=== PATIENT | female | born 1975 | race Caucasian/White ===

== ENCOUNTER 2021-09-01 12:12 | Emergency (ER) | payer MEDICAID ==
[~2021-09-01] VITALS: Ht 162.6 cm; Wt 54.4 kg
--- NOTE | 2021-09-01 12:25 | NUR ---
PT TO ER BED 04 C/O ABDOMINAL PAIN W/ NAUSEA, VOMITING AND DIARRHEA X 1 WEEK. STATES HISTORY OF PANCREATIC CA. STATES TAKING DILAUDID FOR PAPIN CONTROL. STABLE VITALS SAS ARCHITECT. AWAITING MD [place].
--- NOTE | 2021-09-01 12:52 | NUR ---
DR WYMAN AT BEDSIDE FOR EVAL.
[2021-09-01] MEDS ORDERED: ONDANSETRON HCL/PF 4 MG/2 ML VIAL ONE ×2 (12:58→16:31)
[2021-09-01] MEDS ORDERED: ONDANSETRON HCL/PF 4 MG/2 ML VIAL IVP ONE (13:00)
--- NOTE | 2021-09-01 13:18 | NUR ---
PATIENT HARD STICK REQUESTING FOR MIDLINE.
[2021-09-01] MEDS ORDERED: MORPHINE SULFATE INJ 2 MG/ML DISP.SYRIN IV ONE (13:30)
[2021-09-01] MEDS ORDERED: MORPHINE SULFATE INJ 2 MG/ML DISP.SYRIN ONE (13:56)
--- NOTE | 2021-09-01 14:11 | NUR ---
PT TO RADIOLOGY FOR ABDOMINAL CT SCAN VIA [facility].
[2021-09-01] MEDS ORDERED: LEVETIRACETAM (500MG) 1,500 MG in IV NS 0.9% 100 ML IV SCH (14:30)
[2021-09-01] MEDS ORDERED: ONDANSETRON HCL/PF 4 MG/2 ML VIAL IV ONE (14:30)
[2021-09-01] MEDS ORDERED: HYDROMORPHONE INJ 2 MG/ML DISP.SYRIN IV ONE (14:30)
[2021-09-01 14:44] LABS: BILIRUBIN,URINE NEGATIVE (NEGATIVE); COLOR,URINE YELLOW (YELLOW); LEUKOCYTE ESTERASE ,URINE NEGATIVE (NEGATIVE); NITRITE, URINE NEGATIVE (NEGATIVE); PROTEIN,URINE NEGATIVE (NEGATIVE); UGLUCOSE NEGATIVE (NEGATIVE); UROBILINOGEN,URINE 0.2 EU/dL (0.2)
[2021-09-01 15:48] LABS: BACTERIA,URINE None seen /HPF (None Seen); RBC,URINE 0-2 /HPF (0-2); WBC,URINE 0-2 /HPF (0-3)
[2021-09-01 15:49] LABS: CALCIUM OXALATE CRYSTALS,UR Moderate /HPF (None Seen); MUCUS,URINE Few /LPF (None Seen)
--- NOTE | 2021-09-01 16:17 | NUR ---
GABI RESENDEZ AT BEDSIDE FOR MIDLINE PLACEMENT.
--- NOTE | 2021-09-01 16:26 | NUR ---
BLOOD SPECIMEN COLLECTED SENT TO LAB.
[2021-09-01] MEDS ORDERED: HYDROMORPHONE INJ 2 MG/ML DISP.SYRIN ONE ×2 (16:32→18:08)
[2021-09-01 17:13] LABS: BASOPHILS % (AUTO) 0.4 % (0.0-2.0); HEMATOCRIT 35 % (33-45); HEMOGLOBIN 11.5 g/dL (11.5-14.8); LYMPHOCYTES # (AUTO) 1.9 K/uL (0.8-4.8); LYMPHOCYTES % (AUTO) 34.2 % (20.0-44.0); MEAN CORPUSCULAR HGB CONC 33 g/dl (31.0-36.0); MEAN CORPUSCULAR VOLUME 95 fL (82-100); MONOCYTES # (AUTO) 0.4 K/uL (0.1-1.30); MONOCYTES % (AUTO) 6.8 % (2.0-12.0); NEUTROPHILS # (AUTO) 3.2 K/uL (1.8-8.9); NEUTROPHILS % (AUTO) 57.6 % (43.0-81.0); PLATELET COUNT (AUTO) 238 K/uL (150-450); RED BLOOD CELL COUNT(AUTO) 3.74 MIL/uL (4.0-5.2); WHITE BLOOD COUNT (AUTO) 5.6 K/uL (4.3-11.0)
[2021-09-01 17:42] LABS: ALBUMIN 3.7 g/dL (3.4-5.0); BILIRUBIN,DIRECT 0.1 mg/dL (0.0-0.2); BILIRUBIN,TOTAL 0.4 mg/dL (0.2-1.0); CALCIUM, SERUM 8.3 mg/dL (8.5-10.1); CREATININE 0.5 mg/dL (0.6-1.3); TOTAL PROTEIN, SERUM 7.2 g/dL (6.4-8.2)
[2021-09-01] MEDS ORDERED: POTASSIUM CHLORIDE 20 MEQ TAB.PRT.SR PO ONE ×2 (18:30)
[2021-09-01] MEDS ORDERED: HYDROMORPHONE MDV 2 MG in IV D5W 50 ML IV PRN (18:30)
[2021-09-01] MEDS ORDERED: ONDA4TAB5 SL (18:32)
[2021-09-01] MEDS ORDERED: ACET-907 PO (18:33)
[2021-09-01 19:11] VITALS: BP 128/77
--- NOTE | 2021-09-01 19:11 | NUR ---
Patient discharged to home in stable condition. Written and verbal after care instructions given. Patient verbalizes understanding of instruction.IV removed. Catheter intact and site benign. Pressure and 4x4 applied to site. No bleeding noted.
== END 2021-09-01 19:12 | disposition home or self-care (01) ==
LOC: ER 12:16
DX: R11.2 Nausea with vomiting, unspecified (principal); R10.9 Unspecified abdominal pain; Z86.69 Personal history of other diseases of the nervous system and sense organs; Z87.19 Personal history of other diseases of the digestive system; Z88.0 Allergy status to penicillin; Z88.6 Allergy status to analgesic agent; Z79.891 Long term (current) use of opiate analgesic; Z79.899 Other long term (current) drug therapy
CPT/HCPCS: 36415; 74176; 80048; 80076; 81001; 83690; 83735; 85025; 96365; 96367; 96372 ×2; 96375; 96376; 99284; J1170 ×2; J1953; J2270; J2405 ×2; J7030; J7060

== ENCOUNTER → 2022-11-28 | Emergency (ER) | payer SELFPAY ==
[~2022-11-28] VITALS: Ht 165.1 cm; Wt 40.0 kg
[~2022-11-28] MED LIST: ACET-907 PO; HYDROMORPHONE 1 MG/1 ML DISP.SYRIN IM ONE; HYDROMORPHONE 1 MG/1 ML DISP.SYRIN ONE; IV NS 0.9% 1,000 ML BAG IV ONE; MAGN296S72 PO; MORPHINE SULFATE INJ 2 MG/ML DISP.SYRIN IM ONE; MORPHINE SULFATE INJ 2 MG/ML DISP.SYRIN IV ONE; MORPHINE SULFATE INJ 2 MG/ML DISP.SYRIN ONE; ONDA4TAB11 PO; ONDA4TAB5 SL; ONDANSETRON 4 MG TAB.RAPDIS ONE; ONDANSETRON 4 MG TAB.RAPDIS SL ONE; ONDANSETRON HCL/PF - ER 4 MG/2 ML VIAL IM ONE; ONDANSETRON HCL/PF 4 MG/2 ML VIAL IVP ONE; ONDANSETRON HCL/PF 4 MG/2 ML VIAL ONE; POLY119P2 PO; PROC10TA29 PO; PROCHLORPERAZINE EDISYLATE 10 MG/2 ML VIAL IM ONE; PROCHLORPERAZINE EDISYLATE 10 MG/2 ML VIAL ONE
--- NOTE | 2022-11-28 06:39 | NUR ---
BIBS FOR C/O ABDOMINAL PAIN AND CONSTIPATION X 6 DAYS. PT AAOX4, IN NAD. PLACED IN BED. AWAITING MD [place].
--- NOTE | 2022-11-28 07:23 | NUR ---
REPORT GIVEN TO HENRY FOR JAUN
--- NOTE | 2022-11-28 07:35 | NUR ---
URINE COLLECTED, SENT TO LAB
[2022-11-28 07:37] LABS: BASOPHILS % (AUTO) 0.4 % (0.0-2.0); EOSINOPHILS % (AUTO) 1.3 % (0.0-6.0); HEMATOCRIT 32 % (33-45); HEMOGLOBIN 10.7 g/dL (11.5-14.8); LYMPHOCYTES # (AUTO) 1.5 K/uL (0.8-4.8); MEAN CORPUSCULAR HGB CONC 33 g/dl (31.0-36.0); MEAN CORPUSCULAR VOLUME 94 fL (82-100); MONOCYTES # (AUTO) 0.4 K/uL (0.1-1.30); MONOCYTES % (AUTO) 5.7 % (2.0-12.0); NEUTROPHILS # (AUTO) 5.5 K/uL (1.8-8.9); NEUTROPHILS % (AUTO) 72.6 % (43.0-81.0); PLATELET COUNT (AUTO) 182 K/uL (150-450); RED BLOOD CELL COUNT(AUTO) 3.43 MIL/uL (4.0-5.2); WHITE BLOOD COUNT (AUTO) 7.6 K/uL (4.3-11.0)
[2022-11-28 08:29] LABS: ALBUMIN 3.2 g/dL (3.4-5.0); BILIRUBIN,DIRECT 0.1 mg/dL (0.0-0.2); BILIRUBIN,TOTAL 0.3 mg/dL (0.2-1.0); CALCIUM, SERUM 8.6 mg/dL (8.5-10.1); CREATININE 0.6 mg/dL (0.6-1.3); POTASSIUM 3.6 mmol/L (3.5-5.1)
[2022-11-28 08:58] LABS: BILIRUBIN,URINE NEGATIVE (NEGATIVE); COLOR,URINE YELLOW (YELLOW); LEUKOCYTE ESTERASE ,URINE TRACE (NEGATIVE); NITRITE, URINE NEGATIVE (NEGATIVE); PROTEIN,URINE NEGATIVE (NEGATIVE); UGLUCOSE NEGATIVE (NEGATIVE); UROBILINOGEN,URINE 0.2 EU/dL (0.2)
[2022-11-28 09:04] VITALS: BP 140/98
--- NOTE | 2022-11-28 09:06 | NUR ---
Patient discharged to home in stable condition. Written and verbal after care instructions given. Patient verbalizes understanding of instruction.
[2022-11-28 09:10] LABS: RBC,URINE 0-2 /HPF (0-2)
[2022-11-28 09:11] LABS: BACTERIA,URINE Rare /HPF (None Seen); CALCIUM OXALATE CRYSTALS,UR Many /HPF (None Seen); SQUAMOUS EPITHELIAL CELL,UR Few /HPF (None Seen); WBC,URINE 0-2 /HPF (0-3)
== END | disposition home or self-care (01) ==
LOC: ER 06:24
DX: K59.00 Constipation, unspecified (principal); R10.84 Generalized abdominal pain; R11.2 Nausea with vomiting, unspecified; I10 Essential (primary) hypertension; Z88.0 Allergy status to penicillin; Z88.1 Allergy status to other antibiotic agents; Z98.890 Other specified postprocedural states; Z88.2 Allergy status to sulfonamides; Z79.899 Other long term (current) drug therapy
CPT/HCPCS: 99285; 74176; 71045; 96372 ×2; 85025; 80048; 83690; 80076; 81001; 36415; J2405 ×2; J7030; J2270; J1170; J0780; Q0162